=== PATIENT | female | born 1975 | race African-American/Black ===

== ENCOUNTER 2017-03-29 18:02 | Emergency (ER) | payer MEDICAID, OTHER ==
[~2017-03-29] VITALS: Ht 170.2 cm; Wt 69.6 kg
[~2017-03-29 18:02] MED LIST: ALBU0.0912 INH; AMLO10TA PO; IBUP-974 PO; OXYC10TE14 PO; PRON INH
--- NOTE | 2017-03-29 19:11 | NUR ---
Patient ambulated to bed 06.
--- NOTE | 2017-03-29 19:18 | NUR ---
41/F PRESENT TO ER C/O COLD SYMPTOMS, HEADACHES AND NAUSEA x 2 DAYS AGO.NO S/S OF DISTRESS NOTED AT THE MOMENT.
--- NOTE | 2017-03-29 19:50 | NUR ---
Dr. Miranda evaluating patient at bedside.
--- NOTE | 2017-03-29 19:53 | NUR ---
Patient ambulated to OF.
--- NOTE | 2017-03-29 20:28 | NUR ---
Patient ambulated back to bed 06.
--- NOTE | 2017-03-29 21:34 | NUR ---
Dr. Miranda at bedside to re evaluate patient.
[2017-03-29] MEDS ORDERED: HYDROcodone/APAP 10/325 MG 1 TAB TAB PO STA (21:50)
[2017-03-29] MEDS ORDERED: LEVOFLOXACIN 500 MG TAB PO STA (21:52)
--- NOTE | 2017-03-29 22:20 | NUR ---
Patient discharged with v/s stable. Written and verbal after care instructions given and explained. Patient alert, oriented and verbalized understanding of instructions. Ambulatory with steady gait. All questions addressed prior to discharge. ID band removed. Patient advised to follow up with PMD THIS WK OR RETURN TO ER IF CONDITION WORENS. Rx of NORCO AND LEVAQUIN given. Patient educated on indication of medication including possible reaction and side effects. Opportunity to ask questions provided and answered.
[2017-03-29 22:48] VITALS: BP 135/83
== END 2017-03-29 22:20 | disposition home or self-care (01) ==
LOC: MED 18:02
DX: J32.0 Chronic maxillary sinusitis (principal); J45.909 Unspecified asthma, uncomplicated; I10 Essential (primary) hypertension; Z85.41 Personal history of malignant neoplasm of cervix uteri; Z71.6 Tobacco abuse counseling; Z88.6 Allergy status to analgesic agent; Z88.8 Allergy status to other drugs, medicaments and biological substances
CPT/HCPCS: 71020; 81025; 99284